=== PATIENT | male | born 1945 | race Caucasian/White ===

== ENCOUNTER → 2017-09-24 | Outpatient (CLI) | payer OTHER | LOC: COL.RAD 10:28 | DX: S83.272A Complex tear of lateral meniscus, current injury, left knee, initial encounter (principal); M17.12 Unilateral primary osteoarthritis, left knee; M71.22 Synovial cyst of popliteal space [Baker], left knee; M94.8X8 Other specified disorders of cartilage, other site ==

== ENCOUNTER → 2017-11-08 | Outpatient (CLI) | payer OTHER | LOC: ZCOL.LAB 16:20 | DX: Z01.812 Encounter for preprocedural laboratory examination (principal); Z86.14 Personal history of Methicillin resistant Staphylococcus aureus infection ==

== ENCOUNTER 2018-01-15 10:30 | Outpatient (RCR) | payer OTHER | END 2018-01-21 08:18 | disposition home or self-care (01) | LOC: WSPT 10:30 | DX: Z47.89 Encounter for other orthopedic aftercare (principal) ==

== ENCOUNTER → 2018-10-02 | Outpatient (CLI) | payer OTHER | LOC: COL.RAD 08:29 | DX: K21.9 Gastro-esophageal reflux disease without esophagitis (principal); K44.9 Diaphragmatic hernia without obstruction or gangrene; K22.8 Other specified diseases of esophagus ==

== ENCOUNTER 2019-07-17 16:00 | Outpatient (RCR) | payer OTHER | END 2019-07-28 16:34 | disposition home or self-care (01) | LOC: WSC 16:00 | DX: R26.89 Other abnormalities of gait and mobility (principal) ==

== ENCOUNTER 2020-04-02 10:15 | Outpatient (RCR) | payer OTHER | END 2020-06-14 | disposition home or self-care (01) | LOC: WSC | DX: M25.561 Pain in right knee (principal) ==

== ENCOUNTER 2020-12-15 14:30 | Outpatient (RCR) | payer OTHER | END 2021-01-05 10:20 | disposition home or self-care (01) | LOC: WSC 14:30 | DX: M72.2 Plantar fascial fibromatosis (principal) ==

== ENCOUNTER → 2023-08-22 | Outpatient (RCR) | payer OTHER | END | disposition home or self-care (01) | LOC: WSPT | DX: M54.50 Low back pain, unspecified (principal) ==

== ENCOUNTER → 2024-01-16 | Outpatient (CLI) | payer OTHER ==
[~2024-01-16] MED LIST: Iohexol 300 - 10 ML VIAL ONE; Lidocaine PF 2% (20 MG/ML) 2 ML VIAL ONE
== END ==
LOC: MHCPAIN 12:39
DX: M54.16 Radiculopathy, lumbar region (principal); M51.36 Other intervertebral disc degeneration, lumbar region; M48.062 Spinal stenosis, lumbar region with neurogenic claudication
CPT/HCPCS: G0463; J1100; Q9967